=== PATIENT | male | born 1940 | race Caucasian/White ===

== ENCOUNTER 2018-11-03 13:53 | Emergency (ER) | payer MEDICARE, OTHER ==
--- NOTE | 2018-11-03 15:32 | EDM.PDOC ---
ED HPI GENERAL MEDICAL PROBLEM - General Chief Complaint: ENT Problem Stated Complaint: RIGHT EAR HAS NO FEELING AND CANNOT HEAR OUT OF IT Time Seen by Provider: 11/03/18 15:05 Source of Information: Reports: Patient History Limitations: Reports: No Limitations - History of Present Illness INITIAL COMMENTS - FREE TEXT/NARRATIVE: 78-year-old male with chronic tendinitis and bilateral hearing aids developed sudden hearing loss on the right side 5 days ago. He also feels like his right ear is numb. No other symptoms. Duration: Day(s): (5 days ago) Location: Reports: Other (Right ear) Improves with: Reports: None Worsens with: Reports: None Associated Symptoms: Reports: No Other Symptoms - Related Data Allergies Allergy/AdvReac Type Severity Reaction Status Date / Time No Known Allergies Allergy Verified 11/03/18 15:05 Home Meds: Home Meds Warfarin [Coumadin] 7 mg PO DAILY 11/03/18 [History] atorvaSTATin [Lipitor] 10 mg PO BEDTIME 11/03/18 [History] Past Medical History HEENT History: Reports: Cataract, Hard of Hearing, Impaired Vision, Other (See Below) Other HEENT History: tinnitis Cardiovascular History: Reports: Aneurysm, Blood Clots/VTE/DVT, High Cholesterol Oncologic (Cancer) History: Reports: Other (See Below) Other Oncologic History: precancerous polyp - Past Surgical History HEENT Surgical History: Reports: Cataract Surgery Cardiovascular Surgical History: Reports: AAA Repair GI Surgical History: Reports: Colon Social & Family History - Tobacco Use Smoking Status *Q: Former Smoker Used Tobacco, but Quit: Yes Month/Year Tobacco Last Used: 1980 - Recreational Drug Use Recreational Drug Use: No ED ROS ENT - Review of Systems Review Of Systems: See Below Constitutional: Denies: Fever, Chills HEENT: Denies: Throat Pain Respiratory: Denies: Shortness of Breath, Cough Cardiovascular: Denies: Chest Pain GI/Abdominal: Denies: Nausea, Vomiting Skin: Reports: No Symptoms Neurological: Reports: Paresthesia (Right ear is numb) ED EXAM, ENT - Physical Exam Exam: See Below Exam Limited By: No Limitations General Appearance: Alert, No Apparent Distress Eye Exam: Bilateral Eye: EOMI Ears: Other (The right tympanic membrane is dull, some clear fluid behind the membrane but no inflammatory changes, redness or impaction of cerumen. The left is normal.) Head: Atraumatic Respiratory/Chest: No Respiratory Distress Course - Vital Signs Last Recorded V/S: Last Vital Signs Temp 95.9 F 11/03/18 15:04 Pulse 83 11/03/18 15:04 Resp 16 11/03/18 15:04 BP 133/78 11/03/18 15:04 Pulse Ox 98 11/03/18 15:04 - Re-Assessments/Exams Free Text/Narrative Re-Assessment/Exam: 11/03/18 15:31 This patient likely has eustachian tube dysfunction or some other source of sudden hearing loss. Does not appear to be infectious. He'll be placed on 60 mg of prednisone daily for the next 5 days and can recheck with ENT or his primary provider when he returns home on Thursday. Departure - Departure Time of Disposition: 15:42 Disposition: Home, Self-Care 01 Condition: Good Clinical Impression: Hearing loss in right ear Qualifiers: Hearing loss type: unspecified Qualified Code(s): H91.91 - Unspecified hearing loss, right ear - Discharge Information Instructions: Hearing Loss Referrals: PCP,None [Primary Care Provider] - Forms: ED Department Discharge Care Plan Goals: Continue any current medications, and take 6 pills of prednisone with food once daily for 5 days consecutively. Recheck early next week if symptoms haven't resolved satisfactorily.
== END 2018-11-03 15:42 | disposition home or self-care (01) ==
LOC: JP.ED 13:53
DX: H91.91 Unspecified hearing loss, right ear (principal); Z98.49 Cataract extraction status, unspecified eye; Z87.891 Personal history of nicotine dependence; Z79.01 Long term (current) use of anticoagulants
CPT/HCPCS: 99283